=== PATIENT | female | born 1955 | race Caucasian/White ===

== ENCOUNTER 2019-06-19 09:07 | Emergency (ER) | payer MEDICARE, BC ==
[~2019-06-19] VITALS: Ht 167.6 cm; Wt 108.9 kg
[2019-06-19 09:15] VITALS: BP 154/74
[2019-06-19] MEDS ORDERED: OPSUMIT10 MG PO (09:17)
[2019-06-19] MEDS ORDERED: TRAMADOL 50 MG50 MG PO (09:17)
[2019-06-19] MEDS ORDERED: OMEPRAZOLE10 MG PO (09:18)
[2019-06-19] MEDS ORDERED: DYRENIUM50 MG PO (09:18)
[2019-06-19] MEDS ORDERED: LASIX 20 MG TAB20 MG PO (09:18)
[2019-06-19] MEDS ORDERED: KLOR-CON 1010 MEQ PO (09:19)
[2019-06-19] MEDS ORDERED: NABUMETONE 750750 M1 PO (09:19)
[2019-06-19] MEDS ORDERED: ERYTHROMYCIN E3.5 G3 OPHTHALMIC (09:45)
== END 2019-06-19 10:10 | disposition home or self-care (01) ==
LOC: M.ERS 09:07
DX: H00.011 Hordeolum externum right upper eyelid (principal); I10 Essential (primary) hypertension; Z88.8 Allergy status to other drugs, medicaments and biological substances